=== PATIENT | male | born 1965 | race Caucasian/White ===

== ENCOUNTER 2019-02-05 07:44 | Day surgery (SDC) | payer MEDICAID, SELFPAY ==
[2019-02-05] VITALS (7 sets, daily range): BP systolic 143–163; BP diastolic 80–95; PULSE 87–104; RESP 16–24; TEMP 36.6–36.9; O2SAT 93–98; BMI 33.3
--- NOTE | 2019-02-05 07:56 | EKG12_ITS ---
Test Reason : PRE OP Blood Pressure : / mmHG Vent. Rate : 087 BPM Atrial Rate : 087 BPM P-R Int : 170 ms QRS Dur : 090 ms QT Int : 350 ms P-R-T Axes : 046 036 050 degrees QTc Int : 421 ms Normal sinus rhythm Normal ECG Confirmed by ADRIAN LINARES, TRINH ([id number]), assignment desk editor KALIN PIERCE ([id number]) on 02/08/2019 3:12:28 PM Referred By: Lambert Campos Confirmed By:TRINH CAMPBELL MD
--- NOTE | 2019-02-05 09:25 | SEP_PTH ---
PATIENT: CHINYERE MUNGUIA LOC: [facility] [place][id number] AGE/SX: 54/M ROOM: RE02/05/[address]: Dr. Lambert Campos MD : [id number] BED: DIS: 02/05/2019 SPEC #: [id number] RECD: 02/05/19 15:23 STATUS: SHAWNA SHANON #: [id number] ILIR: 02/05/19 09:[address]: Lambert Campos DEPT: SURGICAL PATHOLOGY RECD BY: Em Ivey ENTERED: 02/08/19 08:56 SP TYPE: SEPTUM OTHR DR: Dr. Eyad Hughes MD Tissues: Nasal septum, NOS Procedures: Decalcification bone/plaque Surgery Specimen Level III HEADER OPERATION: Septoplasty PRE-OP DIAGNOSIS: Stenosis of nasal valve, deviated nasal septum TISSUE SUBMITTED: Nasal septal bone MICROSCOPIC DIAGNOSIS Nasal septal bone and cartilage, septoplasty: Fragments of hyaline cartilage and bone with mild reactive change. Benign respiratory mucosa (clinically deviated septum). AM:claudette 02/11/19 MICROSCOPIC DESCRIPTION Slides are reviewed. GROSS DESCRIPTION Received in fixative is one container labeled with the patient's name and designated nasal septum bone. The specimen consists of multiple irregular fragments of light to dark garcia bone and cartilage that in aggregate measure 6 x 3 x 0.2 cm. The specimen is totally submitted in one cassette after decalcification. / AM:claudette 02/08/19 TC:5 CPT: 55546, 98515
[2019-02-05 09:36] LABS: Bedside Glucose 149 mg/dL (70-110)
[2019-02-05] MEDS: Lidocaine 4% 50 ML Bottle (10:20)
[2019-02-05] MEDS: Oxymetazoline 0.05% 1 SPRAY SPRAY.BTL 15 SPRAY (10:20)
[2019-02-05] MEDS: Bacitracin 500 UNITS/GM PACKET (11:06)
--- NOTE | 2019-02-05 11:16 | PCM.OPRPT ---
Problem List (1) Deviated nasal septum Status: Chronic (2) Nasal valve stenosis Status: Chronic Report of Operation Date of Procedure: 02/05/19 Pre-Operative Diagnosis: Chronic nasal obstruction, deivation of nasal septum Post-Operative Diagnosis: Same Surgery/Procedure Performed:: Septoplasty Description of Surgical Findings:: Clarke is a 54-year-old male presents for evaluation of chronic nasal obstruction failing relief with medical therapy of topical nasal steroid. He reports a history of significant nasal injury and reconstruction. Examination showed stenosis of the nasal valves and significant widening of the anterior nasal septum with foreshortening of the nasal tip resulting in significant obstruction of the nasal passages bilaterally. Revision septoplasty with thinning of the intervening cartilage for improved patency at the nasal valve was offered in hopes of relief of his chronic nasal obstruction complaints and he was eager to proceed. The risks, alternatives, potential complications, and benefits were discussed at length and any questions answered to the patient and/or caregiver's satisfaction. Witnessed informed consent was obtained in the office, and the patient and/or caregiver was agreeable to proceed. Procedure went as follows: The patient was identified in the preoperative holding and brought to the operating room, was placed under general anesthesia and intubated. When appropriate anesthesia was obtained, pledgets soaked in a 50-50 mixture of oxymetazoline and 4% topical lidocaine were placed to decongest the nasal mucosa. The nasal septum was then injected beginning on the left side with 1% lidocaine with 100,000 epinephrine for a total of 6 mL. The pledgets were then removed and the left nasal cavity examined. There was noted to be significant nasal septal deviation to the left with significant widening of the soft tissues and overlapping layers of bone and cartilage. Using a 15 blade scalpel, a hemitransfixion incision was then made on the left side and using the Chester elevator a subperichondrial/periosteal flap was elevated. There is significant scar tissue requiring the sharp transection of the superficial septal Toft soft tissues from thick fibrotic scar. This was then sharply resected effectively thinning of the nasal septum yet retaining the cartilaginous support of the nasal tip. The septum was then transected at the bony cartilaginous junction and a similar flap raised on the contralateral side. Using a Carlos A forceps, the septum was then sharply transected superiorly and the widely thickened bony portions of the superior and anterior bony septum were removed. Posteriorly the deviated portions removed with a Veronica forceps. The hemitransfixion incision was then closed with interrupted 4-0 chromic gut suture followed by a 4-0 plain quilting suture to reapproximate the mucosal flaps which resulted in significant thinning of the anterior nasal septum and reduced obstruction of the nasal inlets. An NG tube was then placed to decompress the stomach and the patient returned to anesthesia, revived and extubated having tolerated the procedure well. Type of Anesthesia:: General Anesthesiologist: Zen Cruz Special Medications: none Specimen's removed: nasal septal cartilage, scar, and bone Drains: none Estimated Blood Loss (mL): 25 mL Fluids Replaced: 1000 mL Grafts/Implants Used: none - Complications none - Admit VTE Documentation VTE Present on Admission: No VTE Mechan Device Prophylaxis: SCD's VTE Pharm Prophylaxis ordered?: No
--- NOTE | 2019-02-05 11:23 | DCINST_ITS ---
- Discharge Diagnoses Current Active Problems: Current Active and Chronic Problems Deviated nasal septum (Chronic) Nasal valve stenosis (Chronic) You will use the following diet at home:: No restrictions Your food should be the consistency of: Regular Discharge Activity: Return to Normal Activity, May not drive while taking narcotic pain medications. Call your doctor if your incision/area has: Sudden Increased Bleeding Call your doctor if you observe: Fever of 101 or Higher, Uncontrolled pain Allergies/Adverse Reactions: Allergies codeine Allergy (Verified 01/01/19 13:46) Unknown Medications to take at Discharge Albuterol Inhaler [Ventolin Hfa (SP)] 1 - 2 puff INHALATION Q4H PRN PRN 01/01/19 Ascorbic Acid [Vitamin C] 500 mg PO DAILY 01/01/19 Aspirin [Aspir-Low] 81 mg PO DAILY 01/01/19 Escitalopram Oxalate [Lexapro] 20 mg PO DAILY 01/01/19 Fenofibrate Nanocrystallized [Fenofibrate] 145 mg PO DAILY 01/01/19 Fish Oil/Dha/Epa [Fish Oil 1,200 mg Fish Oil] 1 each PO DAILY 01/01/19 Insulin Glargine,Hum.rec.anlog [Basaglar Kwikpen U-100] 40 unit SQ DAILY 01/01/19 Mometasone/Formoterol [Dulera 100 Mcg/5 Mcg Inhaler] 13 gm IH BID 01/01/19 Multivitamin [Multivitamins] 1 each PO DAILY 01/01/19 Pravastatin [Pravachol] 40 mg PO DAILY 01/01/19 RX: Gabapentin 600 mg PO BID 01/01/19 RX: Metformin HCl 1,000 mg PO BID 01/01/19 RX: traZODone [Desyrel] 50 mg PO DAILY 01/01/19 Triamterene 37.5MG/Hctz 25MG [Maxzide 37.5 mg-25 mg Tablet] 1 tablet PO DAILY 01/01/19 Umeclidinium [place] Inhaler [Incruse Ellipta Inhaler] 1 puff IH DAILY 01/01/19 Primary Care Physician: Eyad Hughes MD [Primary Care Provider] - Test Results: Test results from this visit will be discussed in further detail at your follow- up appointment, if applicable. Please Follow Up With: Lambert Campos MD When: 2 weeks
[2019-02-05 11:46] LABS: Bedside Glucose 172 mg/dL (70-110)
[2019-02-05] MEDS: Acetaminophen 325 MG Tablet 650 MG PO (12:46)
== END 2019-02-05 13:20 | disposition home or self-care (01) ==
LOC: SDC 07:45 → AC 07:47
PROVIDERS: Referring Provider Otolaryngology; Visit Provider Otolaryngology
PROC: (CPT 30520; principal; 2019-02-05 09:10)
DX: J34.2 Deviated nasal septum (principal); J34.89 Other specified disorders of nose and nasal sinuses; H60.63 Unspecified chronic otitis externa, bilateral; I10 Essential (primary) hypertension; E78.00 Pure hypercholesterolemia, unspecified; F32.9 Major depressive disorder, single episode, unspecified; F41.9 Anxiety disorder, unspecified; J44.9 Chronic obstructive pulmonary disease, unspecified; G47.30 Sleep apnea, unspecified; F17.200 Nicotine dependence, unspecified, uncomplicated; Z79.82 Long term (current) use of aspirin; Z79.4 Long term (current) use of insulin; Z79.84 Long term (current) use of oral hypoglycemic drugs; Z79.899 Other long term (current) drug therapy
CPT/HCPCS: 30520; 82962; 88304; 88311; 93005; J7120; J2405

== ENCOUNTER → 2023-12-29 | Outpatient (CLI) | payer MEDICARE, SELFPAY ==
[2023-12-29 12:33] LABS: Amphetamine Urine VISTA NEGATIVE (<1000 ng/mL); Barbiturate Urine VISTA NEGATIVE (< 200 ng/mL); Benzodiazepine Urine VISTA NEGATIVE (< 200 ng/mL); Cocaine Urine VISTA NEGATIVE (< 300 ng/mL); Ecstacy Urine VISTA NEGATIVE (< 500 ng/mL); Methadone Urine VISTA NEGATIVE (< 300 ng/mL); PCP Urine VISTA NEGATIVE (< 25 ng/mL); THC Urine VISTA NEGATIVE (< 50 ng/mL); Vista UDS pH Range 6
== END | disposition home or self-care (01) ==
PROVIDERS: Referring Provider Anesthesiology Pain Medicine; Visit Provider Anesthesiology Pain Medicine
DX: F11.20 Opioid dependence, uncomplicated (principal)
CPT/HCPCS: 80307